=== PATIENT | male | born 1990 | race Caucasian/White ===

== ENCOUNTER 2018-02-25 09:22 | Observation (INO) | payer BC, OTHER, SELFPAY ==
[2018-02-25 10:28] LABS: #Lymphocytes 1.6 thou/uL (1.20-3.40); #Monocytes 0.4 thou/uL (0.11-0.59); %Basophils 0.4 % (0.0-1.0); %Monocytes 9.1 % (0.0-10.0); %Neutrophils 49.5 % (42.0-75.0); Hemoglobin 16.2 g/dL (14.0-18.0); Mean Corpuscular Hemoglobin 33.3 pg (27.0-31.0); Mean Corpuscular Volume 95.1 fL (78.0-98.0); Mean Platelet Volume 7.9 fL (7.4-10.4); Platelet Count 178 thou/uL (130-400); RBC Distribution Width 11.1 % (11.5-14.5); Red Blood Cell (RBC) Count 4.86 mill/uL (4.70-6.10)
[2018-02-25 10:51] LABS: ALT (SGPT) 17 U/L (8-55); AST (SGOT) 22 U/L (5-34); Albumin 4.6 g/dL (3.5-5.0); Alkaline Phosphatase 86 U/L (40-150); Anion Gap 15 mmol/L (10-20); BUN (Urea Nitrogen) 14 mg/dL (8.9-20.6); Bilirubin, Total 0.7 mg/dL (0.2-1.2); Calc. Creatinine Clearance 0 mL/min (70-130); Calcium 9.2 mg/dL (7.8-10.44); Carbon Dioxide 20 mmol/L (22-29); Chloride 107 mmol/L (98-107); Estimated GFR-MDRD Greater than 90; Globulin 2.5 g/dL (2.4-3.5); Glucose 93 mg/dL (70-105); Potassium 3.8 mmol/L (3.5-5.1); Protein, Total 7.1 g/dL (6.0-8.3); Sodium 138 mmol/L (136-145)
[2018-02-25 11:05] LABS: Bilirubin Negative (Negative); Blood, Urine Negative (Negative); Clarity CLEAR (Clear); Glucose, Urine (Dipstick) Negative (Negative); Leukocyte Negative (Negative); Nitrite Negative (Negative); Protein, Urine (Dipstick) Negative (Neg-Trace); Specific Gravity, Urine 1.008 (1.002-1.036); Urobilinogen 0.2 mg/dL (0.2-1.0)
[2018-02-25 11:06] LABS: Amphetamine Not Detected (NotDetected); Barbiturates Screen Not Detected (NotDetected); Benzodiazepine Screen Not Detected (NotDetected); Cocaine Metabolite Screen Not Detected (NotDetected); Medtox Control Line Valid? VALID (VALID); Medtox Reader # READER 1; Methadone Not Detected (NotDetected); Methamphetamine Not Detected (NotDetected); Opiate Screen Not Detected (NotDetected); Oxycodone Screen Not Detected (NotDetected); Phencyclidine (PCP) Not Detected (NotDetected); THC/Cannabinoid Screen Not Detected (NotDetected); Tricyclic Screen Not Detected (NotDetected)
--- NOTE | 2018-02-25 15:00 | PDOC.FPRHP ---
- History of Present Illness Chief Complaint: Heat exhaustion History of Present Illness: Mr Brewer is a 27yo male with pmh of TBI at presenting with heat exhaustion. He had been working outside spraying weeds for 1 hour when he felt lightheaded, felt tingling and numbness on the left side of his body, had blurry vision, severe headache and weakness. Mother provided some of the hx. He has complained of a headache the past few days. 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 This is the first time he has felt like this at work. He did not fall, no LOC. He been vomiting, mother reports 12x since she arrived a few hours ago. Emesis has been pink or bilious. Reports only urinating once today and no BM since . Stool was normal and he denies any abdominal pain. Headache is diffuse, throbbing a/w photophobia. He hasn't taken any medications prior to coming to ED. ED Course: Phenergan 12.5, Benadryl 25mg, 1L NS, Zofran 4mg, Mg, Ativan, Solumedrol - Allergies/Adverse Reactions Allergies Allergy/AdvReac Type Severity Reaction Status Date / Time No Known Allergies Allergy Unverified 02/25/18 14:59 - Home Medications Medication Instructions Recorded Confirmed Type No Known 02/25/18 02/25/18 History - History PMHx: TBI at PSHx: None FHx: Maternal grandfather- stomach cancer Maternal grandmother- HLD, CAD Mother- IBS Social: 9 cigarettes per day. Denies drink alcohol or drug - Review of Systems General: denies: fever/chills Eyes: reports: vision changes (blurry) ENT: denies: nasal congestion, rhinorrhea Respiratory: denies: cough, congestion, shortness of breath Cardiovascular: denies: chest pain, edema Gastrointestinal: reports: vomiting, constipation, abdominal pain Genitourinary: denies: dysuria Skin: denies: rashes, lesions Musculoskeletal: denies: pain, swelling Neurological: reports: numbness, weakness. denies: syncope - Vital signs BP: 147/61 HR: 68 RR: 18 Tmax: 97.8 Pox: 100% on RA Wt: 67.4kg - Physical Exam Constitutional: NAD, other (curled up in bed, uncooperative during exam and interview) HEENT: normocephalic and atraumatic, TM's clear and intact -HEENT: dry mucous membranes, halitosis Neck: trachea midline Heart: RRR Lungs: CTAB, no respiratory distress Abdomen: soft, non-tender, bowel sounds present -Abdomen: No rebound or rigidity Musculoskeletal: normal structure, normal tone Skin: no rash/lesions, capillary refill <2 seconds FMR H&P: Results - Labs Result Diagrams: 02/26/18 04:36 02/26/18 04:36 Lab results: WBC 4.0 thou/uL (4.8-10.8) L 02/25/18 10:16 Hgb 16.2 g/dL (14.0-18.0) 02/25/18 10:16 Hct 46.3 % (42.0-52.0) 02/25/18 10:16 MCV 95.1 fL (78.0-98.0) 02/25/18 10:16 Plt Count 178 thou/uL (130-400) 02/25/18 10:16 Neutrophils % 49.5 % (42.0-75.0) 02/25/18 10:16 Sodium 138 mmol/L (136-145) 02/25/18 10:17 Potassium 3.8 mmol/L (3.5-5.1) 02/25/18 10:17 Chloride 107 mmol/L (98-107) 02/25/18 10:17 Carbon Dioxide 20 mmol/L (22-29) L 02/25/18 10:17 BUN 14 mg/dL (8.9-20.6) 02/25/18 10:17 Creatinine 0.90 mg/dL (0.6-1.3) 02/25/18 10:17 Glucose 93 mg/dL (70-105) 02/25/18 10:17 Calcium 9.2 mg/dL (7.8-10.44) 02/25/18 10:17 Total Bilirubin 0.7 mg/dL (0.2-1.2) 02/25/18 10:17 AST 22 U/L (5-34) 02/25/18 10:17 ALT 17 U/L (8-55) 08/07/18 10:17 Alkaline Phosphatase 86 U/L (40-150) 02/25/18 10:17 Serum Total Protein 7.1 g/dL (6.0-8.3) 02/25/18 10:17 Albumin 4.6 g/dL (3.5-5.0) 02/25/18 10:17 Urine Ketones Negative mg/dL (Negative) 02/25/18 10:34 Urine Blood Negative (Negative) 02/25/18 10:34 Urine Nitrite Negative (Negative) 02/25/18 10:34 Ur Leukocyte Esterase Negative (Negative) 02/25/18 10:34 FMR H&P: A/P - Problem List (1) Heat exhaustion Status: Acute Code(s): T67.5XXA - HEAT EXHAUSTION, UNSPECIFIED, INITIAL ENCOUNTER - Plan Heat Exhaustion - NS @155ml/hr - Reglan and Benadryl PRN for LOVELL - Repeat Labs in AM - Meds for nausea and vomiting Code Status: FULL DVT and GI ppx: None FMR H&P: Upper Level - Pertinent history 27 yo M w/o significant PMH presents for nausea, vomiting, headache and diaphoresis which started @ approx 0930 this am while working outside at his [employer] job. Pt is extremely uncooperative on exam. Most of history was provided by pts mother and nursing staff. Mother report usual state of health one day prior to symptom onset. Reports working outside for hours and became extremely diaphoretic prior to symptom onset. - Pertinent findings General: - thin, ill apearing male Head: NCAT Eyes: PERRLA, EOMI, no injection Mouth: dry MM CV: RRR, No M/R/G Respiratory: Lungs cta-b/l Abd: soft, non-tender, no rebound or guarding Neuro: no focal deficit, moving all extremities, negative kernig and brudzinski Extremities: No swelling, distal pulses 2+ - Plan Date/Time: 02/25/18 1459 I, Michael Ridley DO, have evaluated this patient and agree with findings/ plan as outlined by human resource internship resident. Pertinent changes/additions are listed here. 27 yo M w/ heat exhaustion and associated symptoms of headache, N&V. Will provide symptom control for headache n/v and give IVF LR @ 1.5X maintenance level. Repeat labs in am. Admit tele obs. Attending Addendum - Attending Addendum Date/Time: 02/26/18 8665 I personally evaluated the patient and discussed the management with Dr. Santizo and Dr. Ridley I agree with the History, Examination, Assessment and Plan documented above with any addition or exceptions noted below. 27 yo male with history of TBI at presents with severe dehydration related to heat exposure. Will place in obs and continue with IVFs. Treat other symptoms. No fever. Monitor closely for worsening and progression. Rule out rhabdo. ABrayMD
[2018-02-25] MEDS ORDERED: methylPREDNISolone Sod Succ/PF 125 MG/2 ML VIAL ONE (15:17)
[2018-02-25] MEDS ORDERED: Lorazepam 2 MG/ML VIAL ONE (15:17)
[2018-02-25] MEDS ORDERED: Water For Inject, Bacteriostat 30 ML ONE (15:17)
[2018-02-25] MEDS ORDERED: Magnesium Sulfate 2 GM in Sodium Chloride 0.9% 100 ML IVPB SCH (15:30)
[2018-02-25] MEDS ORDERED: Lactated Ringer's 1,000 ML IV SCH (16:00)
--- NOTE | 2018-02-25 16:19 | CT ---
CT HEAD NONCONTRAST: Date: 02/25/18 HISTORY: Headache. Vomiting. COMPARISON: 07/02/15. FINDINGS: No evidence of acute intracranial hemorrhage or infarct. Ventricles appear normal in size, shape, and position. There is no mass effect or shift of midline structures. IMPRESSION: No acute intracranial abnormalities are demonstrated on noncontrast CT head. POS: JAMES
[2018-02-25 16:52] VITALS: BMI 20.2
[2018-02-25] MEDS ORDERED: diphenhydrAMINE 50 MG/ML VIAL IVP PRN (17:01)
[2018-02-25] MEDS ORDERED: Calcium Carbonate 500 MG ChewTAB PO PRN (17:01)
[2018-02-25] MEDS ORDERED: Promethazine HCl 25 MG/ML VIAL IM/IV PRN (17:01)
[2018-02-25] MEDS ORDERED: Acetaminophen 325 MG TAB PO PRN (17:01)
[2018-02-25] MEDS ORDERED: Metoclopramide HCl 10 MG/2 ML VIAL IVP PRN (17:01)
[2018-02-25] MEDS ORDERED: Ondansetron HCl/PF 4 MG/2 ML Vial IVP PRN (17:01)
[2018-02-25] MEDS: Lactated Ringer's 1,000 ML IV SCH (17:20)
[2018-02-25] MEDS ORDERED: Nicotine 14 MG PATCH TD SCH (18:00)
[2018-02-25] MEDS: Docusate 100 MG CAP PO SCH (21:15)
[2018-02-26] MEDS: Lactated Ringer's 1,000 ML IV SCH ×2 (00:16→06:41)
[2018-02-26 05:09] LABS: #Lymphocytes 1.4 thou/uL (1.20-3.40); #Monocytes 0.6 thou/uL (0.11-0.59); #Neutrophils 8.1 thou/uL (1.40-6.50); %Basophils 0.2 % (0.0-1.0); %Eosinophils 0.1 % (0.0-10.0); %Lymphocytes 13.7 % (21.0-51.0); %Monocytes 5.9 % (0.0-10.0); %Neutrophils 80.2 % (42.0-75.0); Hemoglobin 14.1 g/dL (14.0-18.0); Mean Corpuscular HGB CONC 35.3 g/dL (32.0-36.0); Mean Corpuscular Hemoglobin 33.6 pg (27.0-31.0); Mean Corpuscular Volume 95.1 fL (78.0-98.0); Mean Platelet Volume 7.7 fL (7.4-10.4); Platelet Count 182 thou/uL (130-400); RBC Distribution Width 11.1 % (11.5-14.5); White Blood Cell (WBC) Count 10.1 thou/uL (4.8-10.8)
--- NOTE | 2018-02-26 05:22 | PDOC.FM ---
- Subjective Subjective: Pt. states that he is feeling much better this morning. He denies nausea, vomiting, abdominal pain, chest pain, sob, and muscle weakness. His mother states that he has a headache and is hungry. - Objective MAR Reviewed: Yes Vital Signs & Weight: Vital Signs (12 hours) Temp Pulse Resp BP Pulse Ox 02/25/18 23:57 98.1 F 63 16 102/48 L 96 02/25/18 20:00 98.0 F 84 12 02/25/18 19:58 98.0 F 84 12 126/56 L 94 L Weight Weight 65.771 kg I&O: 02/24/18 02/25/18 02/26/18 06:59 06:59 06:59 Intake Total 250 Balance 250 Result Diagrams: 02/26/18 04:36 02/26/18 04:36 <Jaime Stanton - Last Filed: 02/26/18 07:02> - Objective Vital Signs & Weight: Weight Weight 65.771 kg Result Diagrams: 02/26/18 04:36 02/26/18 04:36 <Taisha Danielle - Last Filed: 03/02/18 13:52> Phys Exam - Physical Examination Constitutional: NAD HEENT: PERRLA, moist MMs Neck: no JVD, full ROM Respiratory: no wheezing, clear to auscultation bilateral Cardiovascular: RRR Systolic murmur Gastrointestinal: soft, non-tender, no distention, positive bowel sounds Musculoskeletal: no edema, pulses present Neurological: normal sensation, moves all 4 limbs Psychiatric: normal affect, A&O x 3 Skin: normal turgor, cap refill <2 seconds <Jaime Stanton - Last Filed: 02/26/18 07:02> Dx/Plan (1) Heat exhaustion Code(s): T67.5XXA - HEAT EXHAUSTION, UNSPECIFIED, INITIAL ENCOUNTER Status: Acute - Plan Plan: This is a 27 yo male w/ a PMH of a TBI at Heat exhaustion: -Supportive care, IVF resuscitation, monitor vitals -Progress diet Code: FULL Prophylaxis: none Family: none at bedside Disposition: Home today <Jaime Stanton - Last Filed: 02/26/18 07:02> Attending Addendum - Attending Addendum Date/Time: 02/26/18 8621 I personally evaluated the patient and discussed the management with Dr. Stanton I agree with the History, Examination, Assessment and Plan documented above with any addition or exceptions noted below. 27 yo male admitted for heat illness. Doing well this AM. No acute changes. Tolerating PO well. VS stable. Ok to d/c to home. Demetris <Taisha Danielle - Last Filed: 03/02/18 13:52>
[2018-02-26 05:24] LABS: Anion Gap 12 mmol/L (10-20); BUN (Urea Nitrogen) 9 mg/dL (8.9-20.6); Calc. Creatinine Clearance 139 mL/min (70-130); Calcium 8.6 mg/dL (7.8-10.44); Carbon Dioxide 22 mmol/L (22-29); Chloride 106 mmol/L (98-107); Estimated GFR-MDRD Greater than 90; Glucose 116 mg/dL (70-105); Potassium 4.1 mmol/L (3.5-5.1); Sodium 136 mmol/L (136-145)
[2018-02-26 08:09] VITALS: BP 106/52; TEMP 98
[2018-02-26] MEDS: Docusate 100 MG CAP PO SCH (08:42)
--- NOTE | 2018-02-27 02:51 | DIS-2 ---
DATE OF ADMISSION: 02/25/2018 DATE OF DISCHARGE: 02/26/2018 RESIDENT: Jaime Stanton DO ADMITTING ATTENDING: Taisha Danielle MD DISCHARGE ATTENDING: Taisha Danielle MD CONSULTATIONS: None. PROCEDURES: Brain CT shows no acute intracranial abnormalities with noncontrast CT. PRIMARY DIAGNOSIS: Heat exhaustion. SECONDARY DIAGNOSIS: None. DISCHARGE MEDICATIONS: None. DISCONTINUED MEDICATIONS: None. HISTORY OF PRESENT ILLNESS AND HOSPITAL COURSE: A 27-year-old male with past medical history of TBI at presented with heat exhaustion, had been working outside and wearing a heavy jacket when he felt numbness and tingling on the left side of his body, blurry vision, headaches, and weakness. Mot her states that he had been vomiting x12 for a few hours. Vomit was pink or bilious. The patient re ports oliguria and constipation. The patient states headache was diffuse, throbbing with photophobia . In the ER, the patient received Phenergan, Benadryl, normal saline bolus, Zofran, magnesium, Ativa n, and Solu-Medrol. The patient did well overnight. Continued fluid resuscitation in the morning. The patient tolerated p.o. intake and was discharged later that day. DISPOSITION: Stable. DISCHARGE INSTRUCTIONS: 1. Location: Home. 2. Diet: Full diet. 3. Activity: As tolerated. 4. Follow up with primary care physician in 1-2 weeks.
== END 2018-02-26 11:26 | disposition home or self-care (01) ==
LOC: ERS 09:22 → 2SW 14:30
PROVIDERS: ADMIT Student in an Organized Health Care Education/Training Program; ATTEND Student in an Organized Health Care Education/Training Program
DX: T67.5XXA Heat exhaustion, unspecified, initial encounter (principal); F17.210 Nicotine dependence, cigarettes, uncomplicated; Y99.0 Civilian activity done for income or pay
CPT/HCPCS: 36415; 70450; 80048; 80053; 80306; 81003; 82550; 83690; 85025; 96361; 96365; 96367; 96375; 99406; G0378; J2060; J2930; J3475; J7050; J7120

== ENCOUNTER 2022-04-17 03:18 | Emergency (ER) | payer OTHER ==
[2022-04-17] MEDS ORDERED: Dexamethasone 10 MG/ML VIAL ONE (03:43)
[2022-04-17] MEDS ORDERED: Orphenadrine Citrate 60 MG/2 ML VIAL ONE (03:43)
[2022-04-17] MEDS ORDERED: Ketorolac Tromethamine 30 MG/ML VIAL ONE (03:43)
== END 2022-04-17 05:07 | disposition home or self-care (01) ==
LOC: ERS 03:18
DX: M54.50 Low back pain, unspecified (principal); F17.290 Nicotine dependence, other tobacco product, uncomplicated
CPT/HCPCS: 96372; 99283; J1100; J1885; J2360